=== PATIENT | male | born 1985 | race African-American/Black ===

== ENCOUNTER 2016-07-29 23:28 | Emergency (ER) | payer SELFPAY ==
[2016-07-30] MEDS ORDERED: ALBUTEROL SULFATE HFA (90 MCG/PUFF) 8 GM MDI (1 MDI/ER DISP) IH ONE (03:04)
--- NOTE | 2016-07-30 03:07 | ER Document Report ---
[id number] Notes: Patient is a 31-year-old male who presents with complaint of cough and ear pain. Patient says he is congested for a week. He feels pressure behind his ears. He also has a history of reactive airway disease frequent coughs. He does smoke. He continues to smoke. He has not stopped doing this. No other complaints this time. TRAVEL OUTSIDE OF THE [place] IN LAST 30 DAYS: No - Related Data Allergies/Adverse Reactions: No Known Allergies Allergy (Verified 06/18/15 10:09) Past Medical History - Social History Smoking Status: Current Some Day Smoker Cigarette use (# per day): - 5-10 Chew tobacco use (# tins/day): No Frequency of alcohol use: Rare Drug Abuse: None Family History: Reviewed & Not Pertinent Patient has suicidal ideation: No Patient has homicidal ideation: No Pulmonary Medical History: Reports: Hx Asthma Renal/ Medical History: Denies: Hx Peritoneal Dialysis Musculoskeltal Medical History: Denies Hx Arthritis - Immunizations Immunizations up to date: Yes Hx Diphtheria, Pertussis, Tetanus Vaccination: Yes - 2009 Review of Systems - Review of Systems Notes: My Normal Review Basic REVIEW OF SYSTEMS: CONSTITUTIONAL : Denies fever, chills, or sweats. Denies recent illness. EENT: Ear pain.. CARDIOVASCULAR: Denies chest pain. RESPIRATORY: Cough. GASTROINTESTINAL: Denies abdominal pain. Denies nausea, vomiting, or diarrhea. Denies constipation. Last BM: : MUSCULOSKELETAL: Denies neck or back pain or joint pain or swelling. SKIN: Denies rash or skin lesions. NEUROLOGICAL: Denies altered mental status or loss of consciousness. Denies headache. Denies weakness or paralysis or loss of use of either side. Denies problems with gait or speech. Denies sensory or motor loss.ion. ALL OTHER SYSTEMS REVIEWED AND NEGATIVE. Physical Exam - Vital signs Vitals: Temp Pulse Resp BP Pulse Ox 97.5 F 60 16 129/76 H 100 07/30/16 01:49 07/30/16 01:49 07/30/16 01:49 07/30/16 01:49 07/30/16 01:49 - Notes Notes: General Appearance: Well nourished, alert, cooperative, no acute distress, no obvious discomfort. Well-appearing. Vitals: reviewed, See vital signs table. Head: no swelling or tenderness to the head Eyes: PERRL, EOMI, Conjuctiva clear Mouth: No decreasd moisture Throat: No tonsillar inflammation, No airway obstruction, No lymphadenopathy Ears: Normal appearing tympanic membranes. Neck: Supple, no neck tenderness, No thyromegaly Lungs: Very mild scattered wheezing, No rales, No rhonci, No accessory muscle use, good air exchange bilaterally. Heart: Normal rate, Regular rythm, No murmur, no rub Abdomen: Normal BS, soft, No rigidity, No abdominal tenderness, No guarding, no rebound, no abdominal masses, no organomegaly Extremities: strength 5/5 in all extremities, good pulses in all extremities, no swelling or tenderness in the extremities, no edema. Skin: warm, dry, appropriate color, no rash Neuro: speech clear, oriented x 3, normal affect, responds appropriately to questions. Course - Vital Signs Vital signs: Temp Pulse Resp BP Pulse Ox 97.6 F 57 L 16 134/86 H 100 07/30/16 04:05 07/30/16 04:05 07/30/16 04:05 07/30/16 04:05 07/30/16 04:05 - Transfer of Care Notes: 07/30/16 06:48 I informed patient if he continues to smoke most likely will continue difficulty breathing or if you have recurrent coughing whenever he gets sick. Patient currently clinically looks very well. Has no tachypnea. He has just very mild occasional wheezes on auscultation. He has very good air movement. His tympanic membranes are normal. I told him that he most likely has pressure from eustachian tube dysfunction from upper respiratory infection. Informed him that steroids would help. Patient does not want steroids. He says prefers to take Sudafed. He does want inhaler which will help with his cough. I did give inhaler to go home with. Encouraged return to ER if has fevers, difficulty breathing, or feels unwell. Patient agrees with plan and will be discharged home. 07/30/16 06:49 Dictation of this chart was performed using voice recognition software; therefore, there may be some unintended grammatical errors. Discharge - Discharge Clinical Impression: Bronchitis URI (upper respiratory infection) Qualifiers: URI type: unspecified URI Qualified Code(s): J06.9 - Acute upper respiratory infection, unspecified Condition: Good Disposition: HOME, SELF-CARE Additional Instructions: BRONCHITIS: You have acute bronchitis. This disease is an infection or inflammation of the air passageways in your lungs. Symptoms usually include cough, low grade fever, shortness of breath, and wheezing. The cough usually persists for a couple of weeks. Most cases of bronchitis get better without antibiotics. We prescribe antibiotics when we believe bacteria are damaging your airways, or if there's high risk the bronchitis will worsen into pneumonia. Increase your fluid intake. A cool mist humidifier may make your lungs more comfortable. An expectorant (cough medicine that loosens phlegm) can help. If you smoke, STOP!!! Recovery from bronchitis can be somewhat slow, but you should see improvement within a day or two. Repeated episodes of bronchitis may result in lung damage -- for example, chronic bronchitis, recurrent pneumonias, or emphysema. Call the doctor if you develop increasing fever, shortness of breath, chest pain, bloody sputum, or otherwise worsen. If you have not improved at all after several days, contact the physician. INHALED BRONCHODILATORS: You have received a treatment of and/or prescription for an inhaled bronchodilator -- a medication which stimulates the airways in the lung to dilate. This improves the flow of air in asthma, bronchitis, and emphysema. These medicines have some similarity to adrenaline, and can cause similar side effects: shakiness, racing heart, and a sense of nervousness. These side effects decrease with time. Contact your doctor if these side effects are severe. Do not over-use the medicine. Too-frequent use of the inhaler may make it ineffective. Call your doctor if the inhaler is not controlling your symptoms at the prescribed doses. SMOKING: If you smoke, you should stop smoking. The tar and chemicals in cigarette smoke are harmful. Smoking has been shown to cause: emphysema chronic bronchitis lung cancer mouth and throat cancer stomach and pancreas cancer premature aging defects In addition, smoking increases ear and lung infections in children of smokers. FOLLOW-UP CARE: If you have been referred to a physician for follow-up care, call the physician s office for an appointment as you were instructed or within the next two days. If you experience worsening or a significant change in your symptoms, notify the physician immediately or return to the Emergency Department at any time for re-evaluation. Please return to the ER immediately if you have difficulty breathing, fevers, or feel that your symptoms are worsening. Please follow-up with a physician in 2-3 days for reevaluation. You can use inhaler as 2 puffs every 4 hours as needed for cough or difficulty breathing. Forms: Return to Work
[2016-07-30 04:07] VITALS: BP 134/86
== END 2016-07-30 04:05 | disposition home or self-care (01) ==
LOC: ER 23:28
DX: J40 Bronchitis, not specified as acute or chronic (principal); J06.9 Acute upper respiratory infection, unspecified; R05 Cough; H92.09 Otalgia, unspecified ear; J45.909 Unspecified asthma, uncomplicated; F17.210 Nicotine dependence, cigarettes, uncomplicated
CPT/HCPCS: 99282; J3490

== ENCOUNTER 2017-03-23 20:37 | Emergency (ER) | payer OTHER ==
[2017-03-23 20:44] VITALS: BP 125/71
[2017-03-23] MEDS ORDERED: IBUPROFEN 600 MG TABLET PO ONE (22:23)
--- NOTE | 2017-03-23 22:48 | ER Document Report ---
ED Extremity Problem, Upper - General Chief Complaint: Arm Pain Stated Complaint: RIGHT ARM INJURY Time Seen by Provider: 03/23/17 22:18 Notes: The patient is a 32-year-old male, right-handed and works in a restaurant, presents with pain and swelling of his right wrist after he held open a heavy door earlier today. Patient denies falls, open wounds, numbness, tingling or any other injuries or joint swelling. TRAVEL OUTSIDE OF THE [place] IN LAST 30 DAYS: No - Related Data Allergies/Adverse Reactions: No Known Allergies Allergy (Verified 03/23/17 20:40) Past Medical History - General Information source: Patient - Social History Smoking Status: Unknown if Ever Smoked Family History: Reviewed & Not Pertinent Patient has suicidal ideation: No Patient has homicidal ideation: No Pulmonary Medical History: Reports: Hx Asthma Renal/ Medical History: Denies: Hx Peritoneal Dialysis Musculoskeltal Medical History: Denies Hx Arthritis - Immunizations Immunizations up to date: Yes Hx Diphtheria, Pertussis, Tetanus Vaccination: Yes - 2009 Review of Systems - Review of Systems Notes: REVIEW OF SYSTEMS: CONSTITUTIONAL: -fevers, -chills EENT: -eye pain, -difficulty swallowing, -nasal congestion CARDIOVASCULAR:-chest pain, -syncope. RESPIRATORY: -cough, -SOB GASTROINTESTINAL: -abdominal pain, - nausea, -vomiting, -diarrhea GENITOURINARY: -dysuria, -hematuria MUSCULOSKELETAL: +right wrist pain and swelling, -back pain, -neck pain SKIN: -rash or skin lesions. HEMATOLOGIC: -easy bruising or bleeding. LYMPHATIC: -swollen, enlarged glands. NEUROLOGICAL: -altered mental status or loss of consciousness, -headache, - neurologic symptoms PSYCHIATRIC: -anxiety, -depression. ALL OTHER SYSTEMS REVIEWED AND NEGATIVE. Physical Exam - Vital signs Vitals: Temp Pulse Resp BP Pulse Ox 98.7 F 66 20 125/71 100 03/23/17 20:40 03/23/17 20:40 03/23/17 20:40 03/23/17 20:40 03/23/17 20:40 - Notes Notes: PHYSICAL EXAMINATION: GENERAL: Well-appearing, well-nourished and in no acute distress. HEAD: Atraumatic, normocephalic. EYES: Pupils equal round and reactive to light, extraocular movements intact, sclera anicteric, conjunctiva are normal. ENT: nares patent, oropharynx clear without exudates. Moist mucous membranes. NECK: Normal range of motion, supple without lymphadenopathy LUNGS: Breath sounds clear to auscultation bilaterally and equal. No wheezes rales or rhonchi. HEART: Regular rate and rhythm without murmurs ABDOMEN: Soft, nontender, normoactive bowel sounds. No guarding, no rebound. No masses appreciated. EXTREMITIES: Swelling and tenderness of right lateral wrist, no snuffbox tenderness. Normal range of motion, no pitting or edema. No cyanosis. Brisk capillary refill. NEUROLOGICAL: Cranial nerves grossly intact. Normal speech, normal gait. Normal sensory and motor exams. PSYCH: Normal mood, normal affect. SKIN: Warm, Dry, normal turgor, no rashes or lesions noted. Course - Re-evaluation Re-evalutation: Patient has a distal right radius fracture that is nondisplaced and intra- articular. No snuffbox tenderness to suggest scaphoid fracture and he is neurovascularly intact distally. Patient placed in splint and will have him follow-up with orthopedics for a recheck of his symptoms. - Vital Signs Vital signs: Temp Pulse Resp BP Pulse Ox 98.7 F 66 20 125/71 100 03/23/17 20:40 03/23/17 20:40 03/23/17 20:40 03/23/17 20:40 03/23/17 20:40 - Diagnostic Test Radiology reviewed: Image reviewed, Reports reviewed Radiology results interpreted by me: Right wrist x-ray: distal radius fx, non-displaced, intraarticular Discharge - Discharge Clinical Impression: Distal radius fracture, right Qualifiers: Encounter type: initial encounter Fracture type: closed Fracture morphology: unspecified fracture morphology Qualified Code(s): S52.501A - Unspecified fracture of the lower end of right radius, initial encounter for closed fracture Condition: Stable Disposition: HOME, SELF-CARE Additional Instructions: Fracture You have a fracture of your distal radius. The typical broken bone requires only protection and sufficient time for healing. "Setting" is necessary only if the bones are crooked or out of position. The physician will re-assess you periodically to make certain that the bone heals without complications. It's important that you follow the instructions given you. The initial treatment is immobilization, elevation of the injury, and cold packs. Not all fractures require a cast. Depending on the location and type of fracture, immobilization may consist of a splint, cast, sling, bulky dressing , or simply rest. The length of time required for healing depends on the location and type of fracture, and on the age of the patient. The treatment plan the physician has outlined for you is customized to your fracture and health condition. Call the doctor or return at once if pain becomes severe, or if severe swelling or numbness develop. Prescriptions: Hydrocodone/Acetaminophen [Drumore 5-325 mg Tablet] 1 tab PO Q6H PRN #10 tablet PRN Reason: Referrals: JAYANT MARIE DO [ACTIVE STAFF] - Follow up as needed
--- NOTE | 2017-03-23 23:07 | RADIOLOGY REPORT (SQ) ---
EXAM DESCRIPTION: WRIST RIGHT 3 VIEWS COMPLETED DATE/TIME: 03/23/2017 10:46 pm REASON FOR STUDY: wrist pain COMPARISON: None. NUMBER OF VIEWS: Three views. TECHNIQUE: AP, lateral, and oblique radiographic images acquired of the right wrist. LIMITATIONS: None. FINDINGS: MINERALIZATION: Normal. BONES: Nondisplaced distal radius intra-articular fracture, seen best on the frontal projection. No dislocation. No worrisome bone lesions. Normal alignment. SOFT TISSUES: Mild soft tissue swelling. No foreign body. OTHER: No other significant finding. IMPRESSION: Nondisplaced distal radius intra-articular fracture. TECHNICAL DOCUMENTATION: JOB ID: [id number] [employer]- All Rights Reserved
[2017-03-23] MEDS ORDERED: HYDROCODONE/ACETAMINOPHEN 5-325 MG TABLET PO ONE (23:11)
== END 2017-03-23 23:48 | disposition home or self-care (01) ==
LOC: ER 20:37
DX: S52.501A Unspecified fracture of the lower end of right radius, initial encounter for closed fracture (principal); X58.XXXA Exposure to other specified factors, initial encounter
CPT/HCPCS: 99283

== ENCOUNTER 2017-05-27 13:28 | Emergency (ER) | payer SELFPAY ==
[2017-05-27 13:46] VITALS: BP 125/87
--- NOTE | 2017-05-27 14:34 | RADIOLOGY REPORT (SQ) ---
EXAM DESCRIPTION: HAND RIGHT 3 VIEWS COMPLETED DATE/TIME: 05/27/2017 2:21 pm REASON FOR STUDY: pain COMPARISON: None. EXAM PARAMETERS: NUMBER OF VIEWS: Three views. TECHNIQUE: AP, lateral and oblique radiographic images acquired of the right hand. LIMITATIONS: None. FINDINGS: MINERALIZATION: Normal. BONES: Cannot exclude a nondisplaced fracture of the base of the 4th metacarpal. JOINTS: No effusions. SOFT TISSUES: No soft tissue swelling. No foreign body. OTHER: No other significant finding. IMPRESSION: Cannot exclude a nondisplaced fracture of the base of the 4th metacarpal. TECHNICAL DOCUMENTATION: JOB ID: [id number] [employer]- All Rights Reserved
--- NOTE | 2017-05-27 14:35 | ER Document Report ---
HPI - HPI Pain Level: 5 Notes: Patient is a 32-year-old male no severe past medical history presents ED complaining of right hand pain and swelling status post punching a wall 2 days ago. Patient states that the pain is not severe, but is more concerned about the bruising and the swelling. Patient has not noted any break in his skin. The pain does not radiate. He has no numbness or tingling associated with it. Patient denies any drug allergies. He does admit to smoking but denies any IV drug use. No other concerns or complaints. Denies any headache, fever, URI, sore throat, chest pain, palpitations, syncope, cough, shortness of breath, wheeze, dyspnea, abdominal pain, nausea/vomiting/diarrhea, muscle paralysis/ weakness, or rash. - ROS Notes: REVIEW OF SYSTEMS: CONSTITUTIONAL : Denies fever, chills, or sweats. Denies recent illness. EENT: Denies eye, ear, throat, or mouth pain or symptoms. Denies nasal or sinus congestion or discharge. Denies throat, tongue, or mouth swelling or difficulty swallowing. CARDIOVASCULAR: Denies chest pain. Denies palpitations or racing or irregular heart beat. Denies ankle edema. RESPIRATORY: Denies cough, cold, or chest congestion. Denies shortness of breath, difficulty breathing, or wheezing. GASTROINTESTINAL: Denies abdominal pain or distention. Denies nausea, vomiting , or diarrhea. GENITOURINARY: Denies difficulty urinating, painful urination, burning, frequency, blood in urine, or discharge. MUSCULOSKELETAL: see hpi SKIN: Denies rash, lesions or sores. NEUROLOGICAL: Denies confusion or altered mental status. Denies passing out or loss of consciousness. Denies dizziness or lightheadedness. Denies headache. Denies weakness or paralysis or loss of use of either side. Denies problems with gait or speech. Denies sensory loss, numbness, or tingling. ALL OTHER SYSTEMS REVIEWED AND NEGATIVE. Dictation was performed using [employer] voice recognition software Past Medical History - Social History Smoking Status: Current Every Day Smoker Family History: Reviewed & Not Pertinent Pulmonary Medical History: Reports: Hx Asthma Renal/ Medical History: Denies: Hx Peritoneal Dialysis Musculoskeltal Medical History: Denies Hx Arthritis - Immunizations Immunizations up to date: Yes Hx Diphtheria, Pertussis, Tetanus Vaccination: Yes - 2009 [facility] Provider Document - CONSTITUTIONAL Agree With Documented VS: Yes Notes: PHYSICAL EXAMINATION: GENERAL: Well-appearing, well-nourished and in no acute distress. LUNGS: Breath sounds clear to auscultation bilaterally and equal. No wheezes rales or rhonchi. HEART: Regular rate and rhythm without murmurs, rubs, gallops. Musculoskeletal: Rt wrist: FROM to passive/active. Strength 5+/5. Radial pulse 2+. Rt hand: + swelling, mild ecchymosis. No abrasion, laceration. N/V intact. + tenderness to the Metacarpal bones of the 4th-5th. No digit tenderness. FROM to flexion/adduction/abduction of the fingers. Extremities: No cyanosis, clubbing, or edema b/l. Peripheral pulses 2+. Capillary refill less than 3 seconds. NEUROLOGICAL: Normal speech, normal gait. Normal sensory, motor exams PSYCH: Normal mood, normal affect. SKIN: Warm, Dry, normal turgor, no rashes or lesions noted. - INFECTION CONTROL TRAVEL OUTSIDE OF THE [place] IN LAST 30 DAYS: No - RESPIRATORY O2 Sat by Pulse Oximetry: 100 Course - Re-evaluation Re-evalutation: 05/27/17 15:03 Patient is an afebrile, well-hydrated, 32-year-old male who presents the ED with right hand pain, fracture of the fourth metacarpal. Vitals are stable. PE is otherwise unremarkable for any neurovascular compromise, obvious tendon/ ligament rupture, or any compartment syndrome. An ulnar gutter splint was placed today. Tylenol given today. I will send him home with a [employer] disp pack. Conservative measures for symptoms. I would like him to recheck with orthopedics in the next week for further evaluation and management. Recheck with your PCM this week as well. Return to the ED with any worsening/ concerning symptoms otherwise as reviewed in discharge. Patient is in agreement. - Vital Signs Vital signs: Temp Pulse Resp BP Pulse Ox 98.0 F 66 16 125/87 H 100 05/27/17 13:45 05/27/17 13:45 05/27/17 13:45 05/27/17 13:45 05/27/17 13:45 Procedures - Immobilization Right Hand Time completed: 14:55 Pre-Proc Neuro Vasc Exam: Normal Immobilizer type: Ulnar - ulnar gutter Performed by: PCT Post-Proc Neuro Vasc Exam: Normal, Unchanged from pre-exam Discharge - Discharge Clinical Impression: Fracture of fourth metacarpal bone of right hand Qualifiers: Encounter type: initial encounter Fracture type: closed Metacarpal location: base Fracture alignment: nondisplaced Qualified Code(s): S62.344A - Nondisplaced fracture of base of fourth metacarpal bone, right hand, initial encounter for closed fracture Condition: Stable Disposition: HOME, SELF-CARE Instructions: Fractured Metacarpal ([facility]), Ice & Elevation ([facility]) Additional Instructions: Rest, Ice, Compression, Elevation Tylenol/ibuprofen as needed Light stretches daily Strength exercises as able Moist heat and massage may help F/u with your PCP in 3-5 days for a recheck Call Orthopedics to set up an appointment for further evaluation and management Return to the ED with any worsening symptoms and/or development of fever, headache, chest pain, palpitations, syncope, shortness of breath, trouble breathing, abdominal pain, n/v/d, muscle weakness/paralysis, numbness/tingling, swelling, redness, or other worsening symptoms that are concerning to you. Forms: Elevated Blood Pressure Referrals: [facility] [Provider Group] - Follow up in 3-5 days
[2017-05-27] MEDS ORDERED: ACETAMINOPHEN 325 MG TABLET PO ONE (14:39)
[2017-05-27] MEDS ORDERED: HYDROCODONE/ACETAMINOPHEN 5-325 MG 6 TAB/DSPK PO PRN (14:39)
== END 2017-05-27 15:25 | disposition home or self-care (01) ==
LOC: ER 13:28
DX: S62.344A Nondisplaced fracture of base of fourth metacarpal bone, right hand, initial encounter for closed fracture (principal); M79.641 Pain in right hand; W22.01XA Walked into wall, initial encounter; F17.200 Nicotine dependence, unspecified, uncomplicated; J45.909 Unspecified asthma, uncomplicated
CPT/HCPCS: 99283

== ENCOUNTER 2019-01-08 14:19 | Emergency (ER) | payer SELFPAY ==
--- NOTE | 2019-01-08 14:53 | ER Document Report ---
ED Medical Screen (RME) - General Chief Complaint: Flank Pain Stated Complaint: FLANK PAIN Time Seen by Provider: 01/08/19 14:52 Mode of Arrival: Ambulatory Information source: Patient Notes: 33-year-old male presented to ED for complaint of left flank pain that started yesterday he states he is also had some chills. He states is worse when he first gets up and starts moving around. He states he does not know of any injuries. States he does not have any history of any kidney stones does not have any burning or pain with urination. Does not have any nausea or vomiting. Patient is alert oriented respirations regular and unlabored speaking in full sentences walks with even steady gait. I have greeted and performed a rapid initial assessment of this patient. A comprehensive ED assessment and evaluation of the patient, analysis of test results and completion of medical decision making process will be conducted by an additional ED providers. Dictation of this chart was performed using voice recognition software; therefore, there may be some unintended grammatical errors. TRAVEL OUTSIDE OF THE [place] IN LAST 30 DAYS: No - Related Data Allergies/Adverse Reactions: No Known Allergies Allergy (Verified 01/08/19 14:21) Past Medical History Pulmonary Medical History: Reports: Hx Asthma Renal/ Medical History: Denies: Hx Peritoneal Dialysis Musculoskeltal Medical History: Denies Hx Arthritis - Immunizations Immunizations up to date: Yes Hx Diphtheria, Pertussis, Tetanus Vaccination: Yes - 2009 Physical Exam - Vital signs Vitals: Temp Pulse Resp BP Pulse Ox 98.2 F 58 L 16 126/73 H 98 01/08/19 14:28 01/08/19 14:28 01/08/19 14:28 01/08/19 14:28 01/08/19 14:28 Course - Vital Signs Vital signs: Temp Pulse Resp BP Pulse Ox 98.2 F 58 L 16 126/73 H 98 01/08/19 14:28 01/08/19 14:28 01/08/19 14:28 01/08/19 14:28 01/08/19 14:28
[2019-01-08] MEDS ORDERED: KETOROLAC TROMETHAMINE 60 MG/2 ML SDV IM ONE (14:54)
--- NOTE | 2019-01-08 15:37 | RADIOLOGY REPORT (SQ) ---
EXAM DESCRIPTION: U/S RETROPERITON (RENAL/AORTA) COMPLETED DATE/TIME: 01/08/2019 3:27 pm REASON FOR STUDY: left flank pain COMPARISON: None. TECHNIQUE: Dynamic and static grayscale images acquired of the kidneys and bladder and recorded on P ACS. Additional selected color Doppler and spectral images recorded. LIMITATIONS: None. FINDINGS: RIGHT KIDNEY: Normal size, 11.3 cm. Normal echogenicity. No solid or suspicious masses. No hydronephrosis. No calcifications. LEFT KIDNEY: Normal size, 10.6 cm. Normal echogenicity. No solid or suspicious masses. No hydronephr osis. No calcifications. BLADDER: No masses. OTHER FINDINGS: No other significant finding. IMPRESSION: NORMAL RENAL AND BLADDER ULTRASOUND. TECHNICAL DOCUMENTATION: JOB ID: [id number] [employer]- All Rights Reserved Reading location - IP/workstation name: [email or web address]
--- NOTE | 2019-01-08 16:59 | ER Document Report ---
ED General - General Chief Complaint: Flank Pain Stated Complaint: FLANK PAIN Time Seen by Provider: 01/08/19 14:52 Mode of Arrival: Ambulatory Information source: Patient TRAVEL OUTSIDE OF THE [place] IN LAST 30 DAYS: No - HPI Patient complains to provider of: Left-sided rib pain atraumatic Onset: Other - Past few days Onset/Duration: Gradual Quality of pain: Achy, Cramping, Sharp Severity: Severe Pain Level: 5 Associated symptoms: None Exacerbated by: Coughing, Deep breathing Relieved by: Denies Similar symptoms previously: No Recently seen / treated by doctor: No Notes: 33-year-old -British male coming in today for left flank/rib pain. No recent illness. No urinary symptoms. No history of kidney stones. - Related Data Allergies/Adverse Reactions: No Known Allergies Allergy (Verified 01/08/19 14:21) Past Medical History - General Information source: Patient - Social History Smoking Status: Current Every Day Smoker Chew tobacco use (# tins/day): No Frequency of alcohol use: Social Drug Abuse: None Family History: Reviewed & Not Pertinent Patient has suicidal ideation: No Patient has homicidal ideation: No Pulmonary Medical History: Reports: Hx Asthma Renal/ Medical History: Denies: Hx Peritoneal Dialysis Musculoskeletal Medical History: Denies Hx Arthritis - Immunizations Immunizations up to date: Yes Hx Diphtheria, Pertussis, Tetanus Vaccination: Yes - 2009 Review of Systems - Review of Systems Notes: Constitutional: No fevers. No chills. EENT: No eye redness. No eye pain. No ear pain. No sore throat. Cardiovascular: No chest pain. No palpitations. Respiratory: No cough. No shortness of breath. No respiratory distress. Gastrointestinal: No abdominal pain. No nausea, vomiting, or diarrhea. Genitourinary: Atraumatic. No lesions. No pain. No discharge. Musculoskeletal: Positive for left-sided rib pain Skin: No rash or lesions. Lymphatic: No swollen lymph nodes. Neurologic: No headache. No syncope. Psychiatric: No suicidal or homicidal ideation. Physical Exam - Vital signs Vitals: Temp Pulse Resp BP Pulse Ox 98.2 F 58 L 16 126/73 H 98 01/08/19 14:28 01/08/19 14:28 01/08/19 14:28 01/08/19 14:28 01/08/19 14:28 - Notes Notes: General: Well-developed, well-nourished. In no acute distress. Non-toxic appearing. Cardiac: Well-perfused. Regular rate and rhythm. No murmurs, rubs, or gallops. Pulmonary: No respiratory distress. No cyanosis. Bilateral lung fiels are clear to auscultation. Abdominal: Non-distended. Non-rigid. Bowels sounds are present in all four quadrants. No guarding or rebound. HEENT: Head is atraumatic. Conjunctivae not reddened. No tearing. PERRL. EOMI. Orbits atraumatic. No periorbital swelling or erythema. Oropharynx is without erythema, swelling, or exudates. Neck: Supple. No adenopathy. No meningismus. Dermatologic: Warm with good turgor. No rash. Atraumatic. Chest: Left posterior, lateral and lower anterior rib tenderness. No crepitus Musculoskeletal: Moves all extremities well. No range of motion deficits. no muscular or joint tenderness. No paraspinal muscle tenderness. no midline spinal tenderness or step-off. Genitourinary: Examination deferred Neurologic: No gross neurologic deficits. Psychiatric: Normal mood. Course - Re-evaluation Re-evalutation: 01/08/19 16:58 Patient had a renal ultrasound done. His pain does not appear to be stone related. It is normal. Reproducible tenderness to palpation of the left ribs. Will check a chest x-ray make sure that we will see any signs of developing infection or inflammation. Most likely this is costochondritis 01/08/19 17:58 Chest x-ray negative. Probable costochondritis causing the symptoms. Will disc harge - Vital Signs Vital signs: Temp Pulse Resp BP Pulse Ox 98.2 F 58 L 16 126/73 H 98 01/08/19 14:28 01/08/19 14:28 01/08/19 14:28 01/08/19 14:28 01/08/19 14:28 - Laboratory Result Diagrams: 01/08/19 17:16 01/08/19 17:16 Laboratory results interpreted by me: 01/08/19 01/08/19 17:16 17:16 RBC 6.25 H MCV 74 L MCH 23.2 L MCHC 31.5 L RDW 14.2 H Seg Neutrophils % 38.0 L Lymphocytes % 50.0 H Carbon Dioxide 34 H Discharge - Discharge Clinical Impression: Costochondritis Condition: Good Disposition: HOME, SELF-CARE Instructions: Costochondritis ([facility]) Prescriptions: Hydrocodone/Ibuprofen [Hydrocodone-Ibuprofen 7.5-200] 1 each PO Q8H PRN #12 tablet PRN Reason: Referrals: [facility] [Provider Group] - Follow up as needed
[2019-01-08 17:27] LABS: ABSOLUTE BASOPHILS # (AUTO) 0.1 10^3/uL (0.0-0.2); ABSOLUTE EOSINOPHILS # (AUTO) 0.3 10^3/uL (0.0-0.6); ABSOLUTE LYMPHOCYTES (AUTO) 3.3 10^3/uL (0.5-4.7); ABSOLUTE MONOCYTES (AUTO) 0.4 10^3/uL (0.1-1.4); ABSOLUTE NEUT (AUTO) 2.5 10^3/uL (1.7-8.2); BASOPHILS % (AUTO) 0.8 % (0-2); EOSINOPHILS % (AUTO) 4.5 % (0-6); HEMOGLOBIN 14.5 g/dL (13.5-17.0); MEAN CORPUSCULAR HEMOGLOBIN 23.2 pg (27.0-33.4); MEAN CORPUSCULAR HGB CONC 31.5 g/dL (32.0-36.0); MEAN CORPUSCULAR VOLUME 74 fl (80-97); MONOCYTES % (AUTO) 6.7 % (3-13); PLATELET COUNT 158 10^3/uL (150-450); RED BLOOD COUNT 6.25 10^6/uL (4.35-5.55); RED CELL DISTRIBUTION WIDTH 14.2 % (11.5-14.0); TOTAL CELLS COUNTED % (AUTO) 100 %; WHITE BLOOD COUNT 6.6 10^3/uL (4.0-10.5)
--- NOTE | 2019-01-08 17:34 | RADIOLOGY REPORT (SQ) ---
EXAM DESCRIPTION: CHEST 2 VIEWS COMPLETED DATE/TIME: 01/08/2019 5:09 pm REASON FOR STUDY: left sided rib pain COMPARISON: 10/29/2015 EXAM PARAMETERS: NUMBER OF VIEWS: two views TECHNIQUE: Digital Frontal and Lateral radiographic views of the chest acquired. RADIATION DOSE: NA LIMITATIONS: none FINDINGS: LUNGS AND PLEURA: No opacities, masses or pneumothorax. No pleural effusion. MEDIASTINUM AND HILAR STRUCTURES: No masses or contour abnormalities. HEART AND VASCULAR STRUCTURES: Heart normal size. No evidence for failure. BONES: No acute findings. HARDWARE: None in the chest. OTHER: No other significant finding. IMPRESSION: NO ACUTE RADIOGRAPHIC FINDING IN THE CHEST. TECHNICAL DOCUMENTATION: JOB ID: [id number] [employer]- All Rights Reserved Reading location - IP/workstation name: [email or web address]
[2019-01-08 17:42] LABS: APPEARANCE,URINE CLEAR; BILIRUBIN,URINE NEGATIVE (NEGATIVE); COLOR,URINE STRAW; GLUCOSE, URINE NEGATIVE (NEGATIVE); KETONES,URINE NEGATIVE (NEGATIVE); LEUKOCYTE ESTERASE,URINE NEGATIVE (NEGATIVE); NITRITE,URINE NEGATIVE (NEGATIVE); PROTEIN,URINE NEGATIVE (NEGATIVE); UROBILINOGEN,URINE NEGATIVE mg/dL (<2.0)
[2019-01-08 17:51] LABS: ALANINE AMINOTRANSFERASE 27 U/L (21-72); ALBUMIN 4.5 g/dL (3.5-5.0); ALKALINE PHOSPHATASE 73 U/L (38-126); ANION GAP 6 (5-19); ASPARTATE AMINO TRANSFERASE 24 U/L (17-59); BILIRUBIN,DIRECT 0.2 mg/dL (0.0-0.4); BILIRUBIN,TOTAL 0.3 mg/dL (0.2-1.3); BLOOD UREA NITROGEN 20 mg/dL (7-20); CALCIUM 9.9 mg/dL (8.4-10.2); CARBON DIOXIDE 34 mmol/L (22-30); CHLORIDE 102 mmol/L (98-107); GLUCOSE 90 mg/dL (75-110); POTASSIUM 4.3 mmol/L (3.6-5.0); TOTAL PROTEIN 7.6 g/dL (6.3-8.2)
[2019-01-08 18:33] VITALS: BP 132/92
== END 2019-01-08 18:33 | disposition home or self-care (01) ==
LOC: ER 14:19
DX: M94.0 Chondrocostal junction syndrome [Tietze] (principal); R10.9 Unspecified abdominal pain; R07.81 Pleurodynia; F17.200 Nicotine dependence, unspecified, uncomplicated
CPT/HCPCS: 36415; 71046; 76770; 80053; 81001; 85025; 99284

== ENCOUNTER 2019-03-30 14:23 | Emergency (ER) | payer SELFPAY ==
[2019-03-30 14:30] VITALS: BP 130/73
--- NOTE | 2019-03-30 14:54 | ER Document Report ---
HPI - HPI Patient complains to provider of: left leg pain Time Seen by Provider: 03/30/19 14:41 Onset: Other - 3 weeks Quality of pain: Achy Severity: Severe Pain Level: 5 Context: Patient presents the emergency department with complaints of left lateral pain for the past 3 weeks. Reports it started after he was jumping rope to get in shape. Denies history of DVT. Denies PEs. Denies past medical history of injury to the leg. No other symptoms such as fever vomiting diarrhea. Patient reports it hurts more sometimes when he walks it feels like it is a rubber band on his knee. Denies trauma. Associated Symptoms: None Exacerbated by: Walking Relieved by: Denies Similar symptoms previously: No Recently seen / treated by doctor: No - MUSCULOSKELETAL Musculoskeletal: REPORTS: Extremity pain Past Medical History - General Information source: Patient - Social History Smoking Status: Current Every Day Smoker Cigarette use (# per day): Yes Frequency of alcohol use: None Drug Abuse: None Occupation: [employer], [employer] Family History: Reviewed & Not Pertinent Patient has suicidal ideation: No Patient has homicidal ideation: No - Medical History Medical History: Negative Pulmonary Medical History: Reports: Hx Asthma Renal/ Medical History: Denies: Hx Peritoneal Dialysis Musculoskeletal Medical History: Denies Hx Arthritis Surgical Hx: Negative - Immunizations Immunizations up to date: Yes Hx Diphtheria, Pertussis, Tetanus Vaccination: Yes - 2009 Vertical Provider Document - CONSTITUTIONAL Agree With Documented VS: Yes Exam Limitations: No Limitations General Appearance: WD/WN, No Apparent Distress - INFECTION CONTROL TRAVEL OUTSIDE OF THE [place] IN LAST 30 DAYS: No - HEENT HEENT: Atraumatic, Normocephalic - NECK Neck: Supple - RESPIRATORY Respiratory: No Respiratory Distress - CARDIOVASCULAR Cardiovascular: Regular Rate - MUSCULOSKELETAL/EXTREMETIES Musculoskeletal/Extremeties: MAEW, FROM, Non-Tender - pt c/o pain left lateral thigh down to the left calf pain. No erythema no swelling no warmth good pedal pulse good cap refill - NEURO Level of Consciousness: Awake, Alert, Appropriate Motor/Sensory: No Motor Deficit - DERM Integumentary: Warm Adult Front & Back Diagram: 1 - reports pain Course - Re-evaluation Re-evalutation: 03/30/19 14:53 34-year-old male presents with complaints of left lateral pain for the past 3 weeks. He reports it started hurting after he jumped rope to get in shape. We discussed conservative treatment ice rest. No obvious swelling no erythema no signs of infection. No x-ray indicated. Patient is wondering about an MRI. Discussed importance of follow-up with orthopedic for an outpatient MRI. If indicated. Patient seems irritated. He left without receiving his discharge instructions. Dictation of this chart was performed using voice recognition software; therefore, there may be some unintended grammatical errors. 03/30/19 14:53 - Vital Signs Vital signs: Temp Pulse Resp BP Pulse Ox 98.6 F 60 18 130/73 H 97 03/30/19 14:29 03/30/19 14:29 03/30/19 14:29 03/30/19 14:29 03/30/19 14:29 Discharge - Discharge Clinical Impression: Leg pain, left Condition: Stable Disposition: HOME, SELF-CARE Additional Instructions: *You have been evaluated for left leg pain *no sports *Rest/Ice/Elevate *Follow up with orthopedics for evaluation within one week *Take ibuprofen as indicated *Return to ED for worsening condition, changes, needs Forms: Elevated Blood Pressure
== END 2019-03-30 14:56 | disposition home or self-care (01) ==
LOC: ER 14:23
DX: M79.652 Pain in left thigh (principal); M79.662 Pain in left lower leg; F17.210 Nicotine dependence, cigarettes, uncomplicated; J45.909 Unspecified asthma, uncomplicated
CPT/HCPCS: 99283

== ENCOUNTER 2019-06-08 08:19 | Emergency (ER) | payer SELFPAY ==
--- NOTE | 2019-06-08 09:01 | ER Document Report ---
ED General - General Chief Complaint: Testicular Swelling Stated Complaint: VOMITING/STOMACH PAIN Time Seen by Provider: 06/08/19 08:36 Primary Care Provider: SHERITA HOPE DO [NO LOCAL MD] - Follow up in 3-5 days Notes: 34-year-old male presents with right testicular swelling and pain that started yesterday after he got off work. Worse with movement/taking stairs. Relieved with staying still. Patient states he also started to have constipation and nausea and vomiting afterwards. Patient denies any hematuria, dysuria, penile discharge, diarrhea, fever, abdominal pain, chest pain, dyspnea, dizziness. Patient states he is in a monogamous relationship and denies any chance of STD. Patient states he did have a history of syphilis which was treated approximately 5 to 6 years ago. Patient denies any difficulty with testicular as previously. TRAVEL OUTSIDE OF THE [place] IN LAST 30 DAYS: No - Related Data Allergies/Adverse Reactions: No Known Allergies Allergy (Verified 06/08/19 08:34) Past Medical History - Social History Smoking Status: Current Every Day Smoker Chew tobacco use (# tins/day): No Frequency of alcohol use: Occasional Drug Abuse: None Family History: Reviewed & Not Pertinent Patient has suicidal ideation: No Patient has homicidal ideation: No Pulmonary Medical History: Reports: Hx Asthma Renal/ Medical History: Denies: Hx Peritoneal Dialysis Musculoskeletal Medical History: Denies Hx Arthritis - Immunizations Immunizations up to date: Yes Hx Diphtheria, Pertussis, Tetanus Vaccination: Yes - 2009 Review of Systems - Review of Systems Notes: Constitutional: Negative for fever. HENT: Negative for sore throat. Eyes: Negative for visual changes. Cardiovascular: Negative for chest pain. Respiratory: Negative for shortness of breath. Gastrointestinal: Positive for nausea, vomiting, constipation. Negative for abdominal pain or diarrhea. Genitourinary: Positive for right testicular swelling and pain. Negative for dysuria. Musculoskeletal: Negative for back pain. Skin: Negative for rash. Neurological: Negative for headaches, weakness or numbness. 10 point ROS negative except as marked above and in HPI. Physical Exam - Vital signs Vitals: Temp Pulse Resp BP Pulse Ox 99.4 F 87 16 149/84 H 99 06/08/19 08:25 06/08/19 08:25 06/08/19 08:25 06/08/19 08:25 06/08/19 08:25 - Notes Notes: Alan Arrington RN GENERAL: Well-appearing, well-nourished and in no acute distress. HEAD: Atraumatic, normocephalic. EYES: Pupils equal round and reactive to light, extraocular movements intact, sclera anicteric, conjunctiva are normal. ENT: TMs normal, nares patent, oropharynx clear without exudates. Moist mucous membranes. NECK: Normal range of motion, supple without lymphadenopathy or JVD. LUNGS: Breath sounds clear to auscultation bilaterally and equal. No wheezes rales or rhonchi. HEART: Regular rate and rhythm without murmurs, rubs or gallops. ABDOMEN: Soft, nontender. No guarding, no rebound. No masses appreciated. : Mild testicular swelling on right and tenderness. No penile discharge. No blood at meatus. EXTREMITIES: Normal range of motion, no pitting or edema. No clubbing or cyanosis. NEUROLOGICAL: Cranial nerves II through XII grossly intact. Normal speech, normal gait. PSYCH: Normal mood, normal affect. SKIN: Warm, Dry, normal turgor, no rashes or lesions noted. Course - Re-evaluation Re-evalutation: 06/08/19 34-year-old male presents with right testicular swelling/pain and nausea/vomiting. Patient also states he has constipation however still passing gas. Nontoxic, well appearing. Exam reveals mildly swollen/tender right testicular without erythema. Abdomen soft nontender. PE is otherwise unremarkable. Ultrasound ordered. CBC, CMP, lipase, UA ordered. 06/08/19 09:02 RN states pt would like to be checked for gonorrhea/chlamydia. Ordered. 06/08/19 09:29 CBC shows leukocytosis 18.4. Afebrile. 06/08/19 09:44 CMP WNL. 06/08/19 10:08 US shows right epididymitis. Consulted [employer]. Recommend coverage for N. gonorrhea and C. trachomatis with Rocephin 250 mg IM plus doxycycline 100 mg BID for 10 days. 06/08/19 10:16 Discussed results of US and labwork with pt. Pt agreeable with coverage for Gonorrhea and Chlamydia. Pt requests to be called if results of GC/CT are positive (alt phone number: [phone]). Rocephin 250 mg IM given in ER. Prescription for doxycycline given. Return precautions given. All questions/concerns addressed prior to discharge. Pt given referral to PCP. - Vital Signs Vital signs: Temp Pulse Resp BP Pulse Ox 99.4 F 87 16 149/84 H 99 06/08/19 08:25 06/08/19 08:25 06/08/19 08:25 06/08/19 08:25 06/08/19 08:25 - Laboratory Result Diagrams: 06/08/19 09:00 06/08/19 09:00 Laboratory results interpreted by me: 06/08/19 09:00 WBC 18.4 H RBC 6.17 H MCV 73 L MCH 23.6 L RDW 14.4 H Plt Count 142 L Lymph % (Auto) 8.5 L Absolute Neuts (auto) 15.8 H Seg Neutrophils % 85.9 H Discharge - Discharge Clinical Impression: Epididymitis, right Condition: Stable Disposition: HOME, SELF-CARE Instructions: Doxycycline ([facility]) Additional Instructions: Your ultrasound showed epididymitis. Please take doxycycline as prescribed and finish all doses even if you feel better. Follow up with PCP listed in 3-5 days. Return to the ED if your testicular pain/swelling worsens or fails to improve, you develop bloody vomiting, bloody diarrhea, you are unable to tolerate fluids due to vomiting, fever greater than 101, or other symptoms that concern you. Prescriptions: Doxycycline Monohydrate 100 mg PO BID #20 capsule Ibuprofen [Motrin 800 mg Tablet] 800 mg PO Q8H PRN #30 tab PRN Reason: Forms: Return to Work Referrals: SHERITA HOPE DO [NO LOCAL MD] - Follow up in 3-5 days
[2019-06-08] MEDS ORDERED: ONDANSETRON 4 MG TAB.RAPDIS PO ONE (09:02)
[2019-06-08 09:15] LABS: ABSOLUTE BASOPHILS # (AUTO) 0.1 10^3/uL (0.0-0.2); ABSOLUTE LYMPHOCYTES (AUTO) 1.6 10^3/uL (0.5-4.7); ABSOLUTE NEUT (AUTO) 15.8 10^3/uL (1.7-8.2); BASOPHILS % (AUTO) 0.3 % (0-2); EOSINOPHILS % (AUTO) 0.1 % (0-6); HEMATOCRIT 45.1 % (37.9-51.0); HEMOGLOBIN 14.5 g/dL (13.5-17.0); LYMPHOCYTES % (AUTO) 8.5 % (13-45); MEAN CORPUSCULAR HEMOGLOBIN 23.6 pg (27.0-33.4); MEAN CORPUSCULAR HGB CONC 32.2 g/dL (32.0-36.0); MEAN CORPUSCULAR VOLUME 73 fl (80-97); MONOCYTES % (AUTO) 5.2 % (3-13); PLATELET COUNT 142 10^3/uL (150-450); RED BLOOD COUNT 6.17 10^6/uL (4.35-5.55); RED CELL DISTRIBUTION WIDTH 14.4 % (11.5-14.0); SEGMENTED NEUTROPHILS % (AUTO) 85.9 % (42-78); TOTAL CELLS COUNTED % (AUTO) 100 %; WHITE BLOOD COUNT 18.4 10^3/uL (4.0-10.5)
[2019-06-08 09:34] LABS: ALBUMIN 4.1 g/dL (3.5-5.0); ALKALINE PHOSPHATASE 79 U/L (38-126); ANION GAP 7 (5-19); ASPARTATE AMINO TRANSFERASE 23 U/L (17-59); BILIRUBIN,DIRECT 0.1 mg/dL (0.0-0.4); BILIRUBIN,TOTAL 0.7 mg/dL (0.2-1.3); BLOOD UREA NITROGEN 10 mg/dL (7-20); CALCIUM 9.2 mg/dL (8.4-10.2); CARBON DIOXIDE 30 mmol/L (22-30); CHLORIDE 102 mmol/L (98-107); GLUCOSE 110 mg/dL (75-110); TOTAL PROTEIN 7.2 g/dL (6.3-8.2)
--- NOTE | 2019-06-08 10:04 | RADIOLOGY REPORT (SQ) ---
EXAM DESCRIPTION: U/S SCROTUM W/DOPPLER COMPLETED DATE/TIME: 06/08/2019 9:40 am REASON FOR STUDY: right testicular swelling/pain COMPARISON: 03/20/2013. TECHNIQUE: Static and realtime hall scale imaging of the scrotum and testes. Selected color Doppler and spectral images recorded to document blood flow. LIMITATIONS: None. FINDINGS: RIGHT: TESTICLE: Normal size measuring 4.7 x 2.8 x 2.5 cm. Normal echotexture. Normal blood flow. No mass. EPIDIDYMIS: Asymmetrically enlarged with mildly increased vascularity. Epididymal head measures 14 m m maximally. HYDROCELE OR VARICOCELE: Trace hydrocele. No varicocele. HERNIA OR EXTRA-TESTICULAR MASS: No. OTHER: No other significant finding. LEFT: TESTICLE: Normal size 3.7 x 3.8 x 2.6 cm. Normal echotexture. Normal blood flow. No mass. EPIDIDYMIS: Unremarkable. Epididymal head measures up to 13 mm maximally. HYDROCELE OR VARICOCELE: No. HERNIA OR EXTRA-TESTICULAR MASS: No. OTHER: No other significant finding. IMPRESSION: 1. Asymmetrically enlarged heterogeneous right epididymis with trace right-sided hydroc zack suggestive of epididymitis. 2. Unremarkable testicular parenchyma bilaterally. TECHNICAL DOCUMENTATION: JOB ID: [id number] [employer]- All Rights Reserved Reading location - IP/workstation name: [email or web address]
[2019-06-08 10:09] LABS: APPEARANCE,URINE CLEAR; BILIRUBIN,URINE NEGATIVE (NEGATIVE); COLOR,URINE YELLOW; GLUCOSE, URINE NEGATIVE (NEGATIVE); KETONES,URINE NEGATIVE (NEGATIVE); PROTEIN,URINE NEGATIVE (NEGATIVE); URINE SPECIFIC GRAVITY 1.018; UROBILINOGEN,URINE NEGATIVE mg/dL (<2.0)
[2019-06-08] MEDS ORDERED: CEFTRIAXONE INJ 250 MG VIAL IM ONE (10:21)
[2019-06-08] MEDS ORDERED: HYDROCODONE/ACETAMINOPHEN 5-325 MG (6 TAB/ER DISP) PO PRN (10:23)
[2019-06-08] MEDS ORDERED: LIDOCAINE 2% INJ (20 MG/ML) 20 ML MDV INJ ONE (10:40)
[2019-06-08 11:10] VITALS: BP 132/78
[2019-06-08 11:27] LABS: CHLAM PCR NOT DETECTED (NOT DETECT)
== END 2019-06-08 11:10 | disposition home or self-care (01) ==
LOC: ER 08:19
DX: N45.1 Epididymitis (principal); K59.00 Constipation, unspecified; F17.200 Nicotine dependence, unspecified, uncomplicated
CPT/HCPCS: 99284; 96372; 96374; 36415; 83690; 85025; 80053; 81001; 87491; 87591; 76870; 93976; J3490; S0119; J0696

== ENCOUNTER 2019-06-23 07:08 | Emergency (ER) | payer SELFPAY ==
[2019-06-23] MEDS ORDERED: ONDANSETRON 4 MG TAB.RAPDIS PO ONE (08:23)
[2019-06-23] MEDS ORDERED: IBUPROFEN 600 MG TABLET PO ONE (08:23)
--- NOTE | 2019-06-23 08:52 | RADIOLOGY REPORT (SQ) ---
EXAM DESCRIPTION: CHEST 2 VIEWS COMPLETED DATE/TIME: 06/23/2019 8:36 am REASON FOR STUDY: cough COMPARISON: 01/08/2019 EXAM PARAMETERS: NUMBER OF VIEWS: two views TECHNIQUE: Digital Frontal and Lateral radiographic views of the chest acquired. RADIATION DOSE: NA LIMITATIONS: none FINDINGS: LUNGS AND PLEURA: No opacities, masses or pneumothorax. No pleural effusion. MEDIASTINUM AND HILAR STRUCTURES: No masses or contour abnormalities. HEART AND VASCULAR STRUCTURES: Heart normal size. No evidence for failure. BONES: No acute findings. HARDWARE: None in the chest. OTHER: No other significant finding. IMPRESSION: No acute abnormality of the lungs. No focal airspace opacity. TECHNICAL DOCUMENTATION: JOB ID: [id number] [employer]- All Rights Reserved Reading location - IP/workstation name: [email or web address]
[2019-06-23 10:10] LABS: A TYPE INFLUENZA AG NEGATIVE (NEGATIVE); B INFLUENZA AG POSITIVE (NEGATIVE)
--- NOTE | 2019-06-23 10:52 | ER Document Report ---
ED Flu Like - General Chief Complaint: Flu Symptoms Stated Complaint: ABDOMINAL PAIN Time Seen by Provider: 06/23/19 07:10 Mode of Arrival: Ambulatory Information source: Patient TRAVEL OUTSIDE OF THE [place] IN LAST 30 DAYS: No - HPI Notes: Patient presents with dry cough congestion body aches and stuffiness for 3 to 4 days. Patient also complains of some low back pain. He has had nausea but no vomiting. The body aches are diffuse. They are moderate. They are constant. They are worse with movement and better with rest. They radiate throughout his body. - Related Data Allergies/Adverse Reactions: No Known Allergies Allergy (Verified 06/08/19 08:34) Past Medical History - General Information source: Patient - Social History Smoking Status: Current Every Day Smoker Chew tobacco use (# tins/day): No Frequency of alcohol use: Occasional Drug Abuse: None Family History: Reviewed & Not Pertinent Patient has suicidal ideation: No Patient has homicidal ideation: No Pulmonary Medical History: Reports: Hx Asthma Renal/ Medical History: Denies: Hx Peritoneal Dialysis Musculoskeletal Medical History: Denies Hx Arthritis - Immunizations Immunizations up to date: Yes Hx Diphtheria, Pertussis, Tetanus Vaccination: Yes - 2009 Review of Systems - Review of Systems Constitutional: Chills, Fever, Malaise, Weakness Cardiovascular: denies: Chest pain, Palpitations Respiratory: Cough. denies: Short of breath Gastrointestinal: Nausea. denies: Vomiting -: Yes All other systems reviewed and negative Physical Exam - Vital signs Vitals: Temp Pulse Resp BP Pulse Ox 98.9 F 84 16 127/89 H 99 06/23/19 07:09 06/23/19 07:09 06/23/19 07:09 06/23/19 07:09 06/23/19 07:09 Interpretation: Normal - General General appearance: Appears well, Alert - HEENT Head: Normocephalic, Atraumatic Eyes: Normal Pupils: PERRL - Respiratory Respiratory status: No respiratory distress Chest status: Nontender Breath sounds: Normal Chest palpation: Normal - Cardiovascular Rhythm: Regular Heart sounds: Normal auscultation Murmur: No - Abdominal Inspection: Normal Distension: No distension Bowel sounds: Normal Tenderness: Nontender Organomegaly: No organomegaly - Back Back: Normal, Nontender - Extremities General upper extremity: Normal inspection, Nontender, Normal color, Normal ROM, Normal temperature General lower extremity: Normal inspection, Nontender, Normal color, Normal ROM, Normal temperature, Normal weight bearing. No: Barry's sign - Neurological Neuro grossly intact: Yes Cognition: Normal Orientation: AAOx4 Rose Coma Scale Eye Opening: Spontaneous Lilly Coma Scale Verbal: Oriented Lilly Coma Scale Motor: Obeys Commands Lilly Coma Scale Total: 15 Speech: Normal Motor strength normal: LUE, RUE, LLE, RLE Sensory: Normal - Psychological Associated symptoms: Normal affect, Normal mood - Skin Skin Temperature: Warm Skin Moisture: Dry Skin Color: Normal Course - Vital Signs Vital signs: Temp Pulse Resp BP Pulse Ox 99.1 F 78 16 137/84 H 99 06/23/19 07:12 06/23/19 07:12 06/23/19 07:12 06/23/19 07:12 06/23/19 07:12 - Diagnostic Test Radiology reviewed: Image reviewed, Reports reviewed Discharge - Discharge Clinical Impression: Influenza B Condition: Stable Disposition: HOME, SELF-CARE Instructions: Influenza ([facility]) Prescriptions: Oseltamivir Phosphate [Tamiflu 75 mg Capsule] 75 mg PO BID 5 Days #10 capsule Tramadol HCl [Ultram] 50 mg PO Q6 PRN 3 Days #12 tablet PRN Reason: Ondansetron HCl [Zofran 4 mg Tablet] 1 tab PO Q6 3 Days #10 tablet Forms: Return to Work
[2019-06-23 11:20] VITALS: BP 139/91
== END 2019-06-23 11:20 | disposition home or self-care (01) ==
LOC: ER 07:08
DX: J11.1 Influenza due to unidentified influenza virus with other respiratory manifestations (principal); R10.9 Unspecified abdominal pain; R11.0 Nausea; R53.1 Weakness; M79.10 Myalgia, unspecified site; F17.200 Nicotine dependence, unspecified, uncomplicated
CPT/HCPCS: 87804; 71046; S0119; 99283